=== PATIENT | female | born 1985 | race Asian ===

== ENCOUNTER 2019-06-06 11:52 | Emergency (ER) | payer OTHER, MEDICAID, SELFPAY ==
[2019-06-06 11:59] VITALS: BP 109/51; PULSE 84; RESP 18; TEMP 37; O2SAT 98
--- NOTE | 2019-06-06 12:21 | ED_ITS ---
HPI - Allergic Reaction <JORGE Michaud Last Filed: 06/06/19 18:54> General Chief complaint: Allergic Reaction Stated complaint: allergy reaction Time Seen by Provider: 06/06/19 12:06 Source: patient Mode of arrival: ambulatory Limitations: no limitations History of Present Illness HPI narrative: This 34-year-old female complains of recurrent allergic reaction. She states she has been evaluated by commercial instructor supervisor and furniture painter in the past and no specific source found (seafood is noted as an allergy but states that she tested non reactive to that.) She states that this started 2 days ago as it usually does with red blotches behind her ears, upper neck, face and facial flushing. She states it is somewhat itchy. She does not have any rash on her trunk or extremities. She does not have any facial or lip swelling, denies difficulty swallowing or dyspnea. She states that this is usually treated with steroids. She states she had 1 left over dose 2 days ago which seemed to help somewhat but does not have any left at home and states that she usually needs a tapering dose, thinks she has taken Medrol Dosepak. She states that she also uses a betamethasone ointment behind her ears and on her neck, and her PCP also describes a cream for her face that helps. She is hoping to get these refilled. She denies any acutely worsening symptoms today. She does not know of any specific exposure, no new creams, cosmetics, etc Related Data Home Medications Medication Instructions Recorded Confirmed Multivitamins - 1 tab PO Q DAY #0 01/16/10 (-S) Previous Rx's Medication Instructions Recorded betamethasone valerate 1 applictn TOP BID PRN #45 gram 06/06/19 desonide [DesOwen] 1 applictn TOP BID PRN #59 ml 06/06/19 prednisone 40 mg PO DAILY #10 tab 06/06/19 Allergies Allergy/AdvReac Type Severity Reaction Status Date / Time SEAFOOD AdvReac Mild FACIAL RASH Uncoded 02/05/18 12:14 Review of Systems <JORGE Michaud Last Filed: 06/06/19 18:54> Review of Systems ROS Unobtainable: All systems reviewed & are unremarkable except as noted in HPI and below PFSH <JORGE Michaud Last Filed: 06/06/19 18:54> Medical History (Updated 06/06/19 @ 13:09 by Cony Little PA-C) Recurrent periodic urticaria (Chronic) Surgical History (Updated 06/06/19 @ 12:20 by Cony Little PA-C) Status post (Resolved) Social History (Updated 06/06/19 @ 12:20 by Cony Little PA-C) Smoking Status: Former smoker Social History (Updated 06/06/19 @ 12:20 by Cony Little PA-C) Smoking Status: Former smoker Exam <Cony Little PA-C - Last Filed: 06/06/19 18:54> Narrative Exam Narrative: GENERAL APPEARANCE: Patient sitting comfortably, in no distress. HEENT: PERRL, EOMI, normal oropharynx, no angioedema NECK: Supple LUNGS: Clear to auscultation bilaterally. HEART: Rate and rhythm regular without murmur, normal S1 and S2, no S3 or S4. DERMATOLOGIC: Cheeks are flushed, scattered maculopapular exanthem on the face and caudal portion of the anterior neck only Initial Vital Signs Initial Vital Signs: Vital Signs Temperature 98.6 F 06/06/19 11:59 Pulse Rate 84 06/06/19 11:59 Respiratory Rate 18 06/06/19 11:59 Blood Pressure 109/51 L 06/06/19 11:59 Pulse Oximetry 98 06/06/19 11:59 <Ramo Dickey DO - Last Filed: 06/07/19 08:51> Initial Vital Signs Initial Vital Signs: Vital Signs Temperature 98.6 F 06/06/19 11:59 Pulse Rate 84 06/06/19 11:59 Respiratory Rate 18 06/06/19 11:59 Blood Pressure 109/51 L 06/06/19 11:59 Pulse Oximetry 98 06/06/19 11:59 Course <Cony Little PA-C - Last Filed: 06/06/19 18:54> Vital Signs - 8 hr 06/06/19 11:59 Temperature 98.6 F Pulse Rate 84 Respiratory Rate 18 Blood Pressure 109/51 L Pulse Oximetry 98 <Ramo Dickey DO - Last Filed: 06/07/19 08:51> Vital Signs - 8 hr 06/06/19 11:59 Temperature 98.6 F Pulse Rate 84 Respiratory Rate 18 Blood Pressure 109/51 L Pulse Oximetry 98 Discharge Plan Departure Patient Disposition: Home Clinical Impression: Urticaria Allergic reaction Qualifiers: Encounter type: initial encounter Qualified Code(s): T78.40XA - Allergy, unspecified, initial encounter Discharge Date/Time: 06/06/19 13:14 Interventions: ED Discharge Assessment Last Done: 06/06/19 13:12 Instructions: DI for Hives Activity Restrictions/Additional Instructions: As we talked about, you should return if you have any acutely worsening symptoms such as facial swelling, lip swelling, difficulty swallowing or breathing. Otherwise, you can resume taking the prednisone as you have in the past. I have also prescribed a refill for your betamethasone. Please use this on areas other than your face as it is too strong for the facial skin. I have prescribed a different steroid for you to use on your face periodically if needed. Please follow-up with your PCP next week for recheck Prescriptions: New betamethasone valerate 0.1 % cream 1 applictn TOP BID PRN (Reason: allergic reaction) Qty: 45 RF: 0 desonide [DesOwen] 0.05 % lotion 1 applictn TOP BID PRN (Reason: allergic reaction to face) Qty: 59 RF: 0 prednisone 20 mg tablet 40 mg PO DAILY Qty: 10 RF: 0 No Action Multivitamins - (-S) 1 tab PO Q DAY Qty: 0 RF: 0 Referrals: Krystian Akbar MD [Primary Care Provider] - <Ramo Dickey DO - Last Filed: 06/07/19 08:51> Cosign ED Attending Leni Attestation: I was immediately available in the department for consultation. Documentation has been reviewed. I agree with assessment and plan.
== END 2019-06-06 13:14 | disposition home or self-care (01) ==
LOC: ED 13:16
PROVIDERS: Emergency Provider Internal Medicine; PCP Family Medicine
DX: L50.9 Urticaria, unspecified (principal); T78.40XA Allergy, unspecified, initial encounter
CPT/HCPCS: 99282; 99283

== ENCOUNTER → 2021-01-13 12:22 | Outpatient (CLI) | payer OTHER, MEDICAID, SELFPAY ==
[2021-01-13] MEDS: COVID-19 VACC #1, MRNA(MOD) 100 MCG/0.5 ML VIAL IM (12:28)
== END ==
PROVIDERS: PCP Family Medicine; Visit Provider Internal Medicine
DX: Z23 Encounter for immunization (principal)
CPT/HCPCS: 0011A; 91301

== ENCOUNTER → 2021-02-10 12:26 | Outpatient (CLI) | payer OTHER, MEDICAID, SELFPAY ==
[2021-02-10] MEDS: COVID-19 VACC #2, MRNA(MOD) 100 MCG/0.5 ML VIAL IM (12:29)
== END ==
PROVIDERS: PCP Family Medicine; Visit Provider Internal Medicine
DX: Z23 Encounter for immunization (principal)
CPT/HCPCS: 0012A; 91301

== ENCOUNTER → 2022-01-19 10:06 | Outpatient (CLI) | payer OTHER, MEDICAID, SELFPAY ==
[2022-01-19 11:02] LABS: Add Manual Diff / Slide Review NO; Basophils Absolute Auto 100 /uL (0-100); Basophils Percent Auto 0.7 % (0-2); Eosinophils Absolute Auto 100 /uL (0-450); Eosinophils Percent Auto 1.6 % (2-4); Hemoglobin 13.1 g/dL (12.0-16.0); Lymphocytes Absolute Auto 3000 /uL (1100-4500); Lymphocytes Percent Auto 35.7 % (25-40); Mean Corpuscular HGB Conc 32.8 % (30-36); Mean Corpuscular Hemoglobin 28.1 PG (26-34); Mean Corpuscular Volume 85.8 fL (80-100); Monocytes Absolute Auto 600 /uL (0-900); Monocytes Percent Auto 6.7 % (3-14); Neutrophils Absolute Auto 4700 /uL (1500-7000); Neutrophils Percent Auto 55.3 % (50-75); Platelet Count 308 X10^3/uL (150-400); Red Blood Cell Count 4.66 X10^6/uL (4.0-5.2); Red Cell Distribution Width 12.9 % (11.6-14.8); White Blood Cell Count 8.4 X10^3/uL (4.5-11.0)
[2022-01-19 11:18] LABS: Erythrocyte Sedimentation Rate 5 MM/HR (0-20)
[2022-01-19 11:30] LABS: Alanine Aminotransferase 14 IU/L (<35); Albumin 4.7 g/dL (3.5-5.0); Albumin Globulin Ratio 1.4 (1.0-2.8); Alkaline Phosphatase 53 U/L (38-126); Aspartate Aminotransferase 26 IU/L (14-36); Bilirubin Total 0.3 mg/dL (0.2-1.3); Blood Urea Nitrogen 12 mg/dL (7-17); C-Reactive Protein Quant < 0.5 mg/dL (<1.0); Calcium 8.8 mg/dL (8.4-10.2); Carbon Dioxide 26 mmol/L (22-32); Chloride 103 mmol/L (98-107); Estimated Glomerular Filt Rate > 60.0 mL/min (>60); Globulin 3.3 g/dL (1.7-4.1); Glucose 96 mg/dL (70-100); HEMOLYSIS < 15 (0-50); Potassium 3.7 mmol/L (3.4-5.1); Sodium 138 mmol/L (137-145)
[2022-01-19 11:38] LABS: LDL Cholesterol Direct 67 mg/dL (<100)
[2022-01-19 11:52] LABS: Vitamin D 25 Hydroxy (D3) 22.2 ng/mL (30.0-100.0)
[2022-01-19 11:56] LABS: TSH w/ Reflex to FT4 1.76 uIU/mL (0.47-4.68)
== END ==
PROVIDERS: PCP Family Medicine; Referring Provider Family Medicine; Visit Provider Family Medicine
DX: L50.9 Urticaria, unspecified (principal); Z00.00 Encounter for general adult medical examination without abnormal findings; N92.0 Excessive and frequent menstruation with regular cycle; R79.89 Other specified abnormal findings of blood chemistry; L25.9 Unspecified contact dermatitis, unspecified cause
CPT/HCPCS: 36415; 80053; 82306; 83721; 84443; 85025; 85651; 86140

== ENCOUNTER 2022-03-19 14:38 | Emergency (ER) | payer OTHER, MEDICAID, SELFPAY ==
[2022-03-19 14:56] VITALS: BP 116/69; PULSE 86; RESP 18; TEMP 37.1; O2SAT 98
[2022-03-19] MEDS: hydrOXYzine pamoate 25 MG CAPSULE 50 MG PO (18:42)
--- NOTE | 2022-03-19 20:08 | ED_ITS ---
HPI - Skin/Abscess/Foreign Bdy <Vania Vargas PA-C - Last Filed: 03/19/22 20:19> General Chief complaint: Skin/Abscess/Foreign Body Stated complaint: Allergic Reaction Time Seen by Provider: 03/19/22 17:26 Source: patient Mode of arrival: Ambulatory Limitations: no limitations History of Present Illness HPI narrative: 37-year-old female with no reported past medical history presents to the ED with a generalized rash for 1 month. Patient is being treated by quality assurance monitor body Dr. Mick Lion, and patient is awaiting results of a skin biopsy. Patient came into the ED today since her pruritus and rash has not been well controlled with the prednisone, hydroxyzine, topical corticosteroid cream. Patient is currently on a prednisone taper. Patient states that these medications are not helping. Patient's complains of the rash spreading all over from her torso and arms and legs to her face, reports it as itchy and burning. Patient denies any rashes of the mucous membranes. Patient denies any bullous lesions. Patient denies use of new cosmetics or other products. Patient denies any known allergies. Patient states that she is scheduled to get a allergy test in the next few days. Related Data Home Medications Medication Instructions Recorded Confirmed Multivitamins - 1 tab PO Q DAY #0 01/16/10 (-S) Previous Rx's Medication Instructions Recorded betamethasone valerate 0.1 % 1 applictn TOP BID PRN #45 gram 06/06/19 topical cream desonide 0.05 % lotion (DesOwen) 1 applictn TOP BID PRN #59 ml 06/06/19 prednisone 20 mg tablet 40 mg PO DAILY #10 tab 06/06/19 hydroxyzine HCl 25 mg tablet 25 mg PO QID PRN 14 Days #60 tab 03/19/22 Allergies Allergy/AdvReac Type Severity Reaction Status Date / Time SEAFOOD AdvReac Mild FACIAL RASH Uncoded 02/05/18 12:14 Review of Systems <Vania Vargas PA-C - Last Filed: 03/19/22 20:19> Review of Systems ROS Unobtainable: All systems reviewed & are unremarkable except as noted in HPI and below Constitutional Constitutional: Denies chills, Denies fatigue, Denies fever(s), Denies frequent falls, Denies lethargy and Denies weakness Eyes Eyes: Denies change in vision, Denies eye discharge, Denies irritation and Denies loss of vision ENT Ears, Nose, Mouth, and Throat: Denies change in voice, Denies dizziness, Denies neck pain, Denies sore throat and Denies throat swelling Cardiovascular Cardiovascular: Denies chest pain, Denies irregular heart rhythm, Denies lightheadedness, Denies palpitations, Denies dyspnea, Denies dyspnea on exertion and Denies orthopnea Respiratory Respiratory: Denies cough, Denies dyspnea, Denies dyspnea on exertion and Denies wheezing Gastrointestinal Gastrointestinal: Denies abdominal pain, Denies change in bowel habits, Denies diarrhea, Denies nausea and Denies vomiting Genitourinary Genitourinary: Denies hematuria, Denies flank pain, Denies urinary incontinence and Denies urinary urgency Musculoskeletal Musculoskeletal: Denies back pain, Denies muscle weakness, Denies neck pain, Denies numbness and Denies tingling Integumentary/Breasts Skin/Breast: Denies pruritus, Denies erythema, Denies rash and Denies wounds Comments: Generalized Itchy rash Neurologic Neurologic: Denies behavioral changes, Denies confusion, Denies dizziness, Denies frequent falls, Denies loss of vision, Denies numbness, Denies tingling and Denies weakness Psychiatric Psychiatric: Denies anxiety, Denies behavioral changes, Denies confusion, Denies depression, Denies homicidal ideation and Denies suicidal ideation Endocrine Endocrine: Denies fatigue, Denies flushing and Denies palpitations Hematologic/Lymphatic Hematologic/Lymphatic: Denies easy bruising Allergic/Immunologic Allergic/Immunologic: Denies urticaria, Denies throat swelling and Denies wheezing Patient History <Vania Vargas PA-C - Last Filed: 03/19/22 20:19> Medical History Recurrent periodic urticaria Surgical History Status post Social History Smoking Status: Current some day smoker Smoking Status: Current some day smoker tobacco type: cigarettes alcohol intake frequency: 0-2 drinks per day Substance Use Type: does not use Exam <Vania Vargas PA-C - Last Filed: 03/19/22 20:19> Initial Vital Signs Initial Vital Signs: Vital Signs Temperature 98.8 F 03/19/22 14:56 Pulse Rate 86 03/19/22 14:56 Respiratory Rate 18 03/19/22 14:56 Blood Pressure 116/69 03/19/22 14:56 Pulse Oximetry 98 03/19/22 14:56 Const General: cooperative, healthy appearing and comfortable HENMT Head: normal to inspection Mouth: oral mucosae normal Throat: posterior oropharynx normal Eyes General: Yes appearance normal, both eyes and all related structures Resp Effort & Inspection: normal respiratory effort Auscultation: clear to auscultation bilaterally Cardio Rate: regular rate Rhythm: regular rhythm Skin Other: Generalized rash on torso, hands, legs, face. Rash appears annular, erythematous, weeping. No signs of overlying bacterial infection. Neuro General: patient alert, patient awake and patient oriented x3 Psych Appearance: grossly normal Mental Status: mental status grossly normal <Britney Rodriguez MD - Last Filed: 03/20/22 07:27> Initial Vital Signs Initial Vital Signs: Vital Signs Temperature 98.8 F 03/19/22 14:56 Pulse Rate 86 03/19/22 14:56 Respiratory Rate 18 03/19/22 14:56 Blood Pressure 116/69 03/19/22 14:56 Pulse Oximetry 98 03/19/22 14:56 Course <Vania Vargas PA-C - Last Filed: 03/19/22 20:19> Orders Ordered: Discontinued Medications Hydroxyzine Pamoate (Hydroxyzine Pamoate 25 Mg Capsule) 50 mg PO NOW ONE Stop: 03/19/22 18:35 Last Admin: 03/19/22 18:42 Dose: 50 mg Documented by: NAHOMY Vital Signs Vital signs: Vital Signs - 8 hr 03/19/22 14:56 Temperature 98.8 F Pulse Rate 86 Respiratory Rate 18 Blood Pressure 116/69 Pulse Oximetry 98 <Britney Rodriguez MD - Last Filed: 03/20/22 07:27> Orders Ordered: Discontinued Medications Hydroxyzine Pamoate (Hydroxyzine Pamoate 25 Mg Capsule) 50 mg PO NOW ONE Stop: 03/19/22 18:35 Last Admin: 03/19/22 18:42 Dose: 50 mg Documented by: NAHOMY Vital Signs Vital signs: Vital Signs - 8 hr 03/19/22 14:56 Temperature 98.8 F Pulse Rate 86 Respiratory Rate 18 Blood Pressure 116/69 Pulse Oximetry 98 MDM - Skin/Abscess/Foreign Bdy <Vania Vargas PA-C - Last Filed: 03/19/22 20:19> [facility] Narrative Medical decision making narrative: 37-year-old female with no reported past medical history presents to the ED with a generalized rash for 1 month. Concern for atopic dermatitis versus other. Given that patient is already on the mainstay of pruritus treatment, will trial a larger dose of hydroxyzine. Patient was prescribed more hydroxyzine. Patient agrees to follow-up with her quality assurance monitor body tomorrow. ED precautions discussed with patient. Patient verbalized understanding. Discharge Plan Departure Patient Disposition: Home Clinical Impression: Rash Instructions: DI for Rash Activity Restrictions/Additional Instructions: You were evaluated in the ED today for a rash. You were given some hydroxyzine to help with the itching. Please follow-up with your quality assurance monitor body tomorrow for further evaluation and management. Please continue the prednisone, topical corticosteroid cream, hydralazine. Return to the ED if you notice any fevers, chills, lightheadedness, chest pain, shortness of breath. Prescriptions: New hydroxyzine HCl 25 mg tablet 25 mg PO QID PRN (Reason: itching) 14 Days Qty: 60 0RF No Action Multivitamins - (-S) 1 tab PO Q DAY Qty: 0 0RF betamethasone valerate 0.1 % cream 1 applictn TOP BID PRN (Reason: allergic reaction) Qty: 45 0RF Rx Instructions: to ears/neck desonide [DesOwen] 0.05 % lotion 1 applictn TOP BID PRN (Reason: allergic reaction to face) Qty: 59 0RF prednisone 20 mg tablet 40 mg PO DAILY Qty: 10 0RF Rx Instructions: 40mg qd x 2d, then 30mg qd x2d, then 20mg qd x 2d, then 10mg qd x 2d Referrals: Shannen Bowens MD [Primary Care Provider] - <Britney Rodriguez MD - Last Filed: 03/20/22 07:27> Cosign ED Attending Cosignature Attestation: I was immediately available in the department for consultation throughout this patient's visit. I agree with documentation as above. Britney Rodriguez MD
== END 2022-03-19 18:48 | disposition home or self-care (01) ==
PROVIDERS: Emergency Provider Student in an Organized Health Care Education/Training Program; PCP Family Medicine
DX: R21 Rash and other nonspecific skin eruption (principal)
CPT/HCPCS: 99283

== ENCOUNTER → 2023-11-29 16:04 | Outpatient (CLI) | payer OTHER, MEDICAID, SELFPAY ==
--- NOTE | 2023-11-29 16:07 | DI.RAD.S_ITS ---
PROCEDURE: XR LUMBAR SPINE 2-3V INDICATIONS: PAIN IN RT HIP TECHNIQUE: 3 views of the lumbar spine were acquired. COMPARISON: None. FINDINGS: Bones: 5 [id number] vertebrae are present. There is normal bony alignment. No vertebral body compression fractures. No suspicious bony lesions. Soft tissues: Overlying bowel gas pattern is normal. No suspicious soft tissue calcifications. IMPRESSION: 1. Normal L-spine. Dictated by: Rayo Nina RRNehemias Interpreted: Feliciano aGrg MD on 11/29/2023 at 16:33 Transcribed by: BRITTON on 11/29/2023 at 16:34 Approved by: Feliciano Garg M.D. on 11/29/2023 at 17:03
== END ==
PROVIDERS: PCP Family Medicine; Referring Provider Family Medicine; Visit Provider Family Medicine
DX: M25.551 Pain in right hip (principal); M54.16 Radiculopathy, lumbar region; M54.50 Low back pain, unspecified
CPT/HCPCS: 72100